=== PATIENT | female | born 1995 | race Caucasian/White ===

== ENCOUNTER 2018-03-02 10:10 | Inpatient (IN) | payer OTHER ==
[~2018-03-02] VITALS: Ht 164 cm; Wt 62.7 kg
[2018-03-02] MEDS ORDERED: RINGERS SOLUTION,LACTATED 1,000 ML IV ONE ×3 (10:18→18:54)
[2018-03-02] MEDS ORDERED: METOCLOPRAMIDE HCL 5 MG/ML 2 ML VIAL IVP ONE (10:30)
[2018-03-02] MEDS ORDERED: CITRIC ACID/SODIUM CITRATE 30 ML SOLUTION UDCUP PO ONE (10:30)
[2018-03-02 11:00] LABS: BASOPHILS % (AUTO) 0.4 % (0.0-2.0); EOSINOPHILS % (AUTO) 0.3 % (1.0-6.0); HEMATOCRIT 38.5 % (36-46); HEMOGLOBIN 13.6 g/dL (12.0-16.0); LYMPHOCYTES # (AUTO) 1.9 K/uL (1.0-4.8); LYMPHOCYTES % (AUTO) 20.8 % (22.0-44.0); MEAN CORPUSCULAR HEMOGLOBIN 33.2 pg (26.0-34.0); MEAN CORPUSCULAR HGB CONC 35.5 G/dL (31.0-37.0); MEAN CORPUSCULAR VOLUME 94 fL (80-100); MONOCYTES # (AUTO) 0.6 K/uL (0.1-1.0); MONOCYTES % (AUTO) 6.5 % (2.0-9.0); NEUTROPHILS # (AUTO) 6.6 K/uL (1.8-7.7); PLATELET COUNT (AUTO) 139 K/uL (150-450); RED BLOOD CELL COUNT(AUTO) 4.11 MIL/uL (4.00-5.20); RED CELL DISTRIBUTION WIDTH 12.9 % (11.5-14.5)
[2018-03-02 11:22] VITALS: BP 106/61
[2018-03-02] MEDS ORDERED: BUPIVACAINE HCL/DEX-WATER/PF 0.75% 2 ML AMP ONE (11:52)
[2018-03-02] MEDS ORDERED: ACETAMINOPHEN 1000 MG/ISO-OSM 100 ML IV ONE (12:11)
[2018-03-02] MEDS ORDERED: HYDROmorphone 2 MG/ML SYRINGE IVP PRN ×2 (14:00)
[2018-03-02] MEDS ORDERED: MEPERIDINE-PF 25 MG/ML VIAL IVP PRN (14:00)
[2018-03-02] MEDS ORDERED: NALOXONE HCL 0.4 MG/ML VIAL IVP PRN (14:00)
[2018-03-02] MEDS ORDERED: OxyCODONE HCL/ACETAMINOPHEN 10-325 MG TABLET PO PRN (14:00)
[2018-03-02] MEDS ORDERED: ONDANSETRON HCL 4 MG/2 ML VIAL IVP PRN (14:00)
[2018-03-02] MEDS ORDERED: FentaNYL CITRATE-PF 100 MCG/2 ML VIAL IVP PRN ×2 (14:00)
[2018-03-02] MEDS ORDERED: DiphenhydrAMINE HCL 50 MG/ML VIAL IVP PRN (14:00)
[2018-03-02] MEDS ORDERED: DEXTROSE 5%-LACTATED RINGERS 1,000 ML IV SCH (14:19)
[2018-03-02] MEDS ORDERED: LANOLIN 7 GM OINTMENT TP PRN (14:30)
[2018-03-02] MEDS ORDERED: METHYLERGONOVINE MALEATE 0.2 MG TABLET PO PRN (14:30)
[2018-03-02] MEDS ORDERED: SENNA/DOCUSATE SODIUM 187-50 MG TABLET PO PRN (14:30)
[2018-03-02] MEDS ORDERED: OxyCODONE HCL/ACETAMINOPHEN 5-325 MG TABLET PO PRN ×2 (14:30)
[2018-03-02] MEDS: RINGERS SOLUTION,LACTATED 1,000 ML IV SCH (19:02)
[2018-03-02] MEDS ORDERED: ACETAMINOPHEN 500 MG TABLET PO SCH (19:30)
[2018-03-02] MEDS: CeFAZolin 2 GM/DEXTROSE 50 ML IV SCH (21:33)
[2018-03-03] MEDS ORDERED: KETOROLAC TROMETHAMINE 30 MG/ML VIAL IVP SCH (01:30)
[2018-03-03] MEDS: RINGERS SOLUTION,LACTATED 1,000 ML IV SCH (03:59)
[2018-03-03] MEDS ORDERED: MORPHINE SULFATE/PF 0.5 MG/ML 10 ML AMP IVP ONE (05:10)
[2018-03-03] MEDS ORDERED: FentaNYL CITRATE-PF 100 MCG/2 ML VIAL IVP ONE (05:10)
[2018-03-03] MEDS ORDERED: EPHEDrine SULFATE 50 MG/ML VIAL IM ONE (05:10)
[2018-03-03] MEDS ORDERED: KETOROLAC TROMETHAMINE 60 MG/2 ML VIAL IM ONE (05:10)
[2018-03-03] MEDS ORDERED: OXYTOCIN 10 UNITS/ML VIAL IM ONE (05:10)
[2018-03-03] MEDS ORDERED: ONDANSETRON HCL 4 MG/2 ML VIAL IVP ONE (05:10)
[2018-03-03] MEDS ORDERED: 0.9% SODIUM CHLORIDE 10 ML VIAL IVP ONE (05:10)
[2018-03-03] MEDS: CeFAZolin 2 GM/DEXTROSE 50 ML IV SCH (05:42)
[2018-03-03 06:24] LABS: BASOPHILS % (AUTO) 0.1 % (0.0-2.0); EOSINOPHILS % (AUTO) 0.1 % (1.0-6.0); HEMATOCRIT 28.6 % (36-46); HEMOGLOBIN 10.5 g/dL (12.0-16.0); LYMPHOCYTES # (AUTO) 1.3 K/uL (1.0-4.8); LYMPHOCYTES % (AUTO) 11.5 % (22.0-44.0); MEAN CORPUSCULAR HEMOGLOBIN 34.1 pg (26.0-34.0); MEAN CORPUSCULAR HGB CONC 36.7 G/dL (31.0-37.0); MEAN CORPUSCULAR VOLUME 93 fL (80-100); MONOCYTES # (AUTO) 0.8 K/uL (0.1-1.0); MONOCYTES % (AUTO) 7.5 % (2.0-9.0); NEUTROPHILS # (AUTO) 8.8 K/uL (1.8-7.7); NEUTROPHILS % (AUTO) 80.8 % (40.0-70.0); PLATELET COUNT (AUTO)-OB 103 K/uL (150-450); RED BLOOD CELL COUNT(AUTO) 3.08 MIL/uL (4.00-5.20); RED CELL DISTRIBUTION WIDTH 12.8 % (11.5-14.5)
[2018-03-03] MEDS: MAGNESIUM HYDROXIDE SUSPENSION 30 ML UDCUP PO PRN ×2 (08:30→20:33)
[2018-03-03] MEDS: IBUPROFEN 800 MG TABLET PO PRN ×2 (08:31→20:33)
[2018-03-04] MEDS: IBUPROFEN 800 MG TABLET PO PRN (04:20)
[2018-03-04] MEDS ORDERED: HYDR-4061 PO (11:40)
[2018-03-04] MEDS ORDERED: FERR-89 PO (11:41)
[2018-03-04] MEDS ORDERED: DSS100 PO (11:42)
[2018-03-04] MEDS ORDERED: IBUP-2071 PO (11:57)
== END 2018-03-04 12:40 | disposition home or self-care (01) | DRG 788 ==
LOC: 4S 10:10 → OBSVTOIN 10:10
PROVIDERS: ADMIT Specialist; ATTEND Specialist
PROC: 10D00Z1 Extraction of Products of Conception, Low, Open Approach (ICD-10-PCS; principal; 2018-03-02)
PROC: 3E02340 Introduction of Influenza Vaccine into Muscle, Percutaneous Approach (ICD-10-PCS; 2018-03-03)
DX: O34.211 Maternal care for low transverse scar from previous cesarean delivery (principal); Z3A.39 39 weeks gestation of pregnancy; Z37.0 Single live birth; Z23 Encounter for immunization
CPT/HCPCS: 86850; 86900; 86901; 87081; 90686; J0131; J0690; J1885; J2274; J2405; J2590; J2765; J3010; J3490; J7120